=== PATIENT | male | born 2000 | race Caucasian/White ===

== ENCOUNTER → 2024-10-29 | Outpatient (CLI) | payer OTHER ==
[2024-10-29 12:57] LABS: HEMATOCRIT 42.2 % (42.0-52.0); HEMOGLOBIN 14.2 g/dl (13.5-17.5); MEAN CORPUSCULAR HEMOGLOBIN 29.2 pg (27.0-33.0); MEAN CORPUSCULAR HGB CONC 33.6 g/dl (32.0-36.5); MEAN CORPUSCULAR VOLUME 86.7 fl (80.0-96.0); PLATELET COUNT, AUTOMATED 221 10^3/uL (150-450); RED BLOOD COUNT 4.87 10^6/uL (4.30-6.10)
[2024-10-29 13:02] LABS: ALBUMIN 4.2 G/DL (3.2-5.2); ALKALINE PHOSPHATASE 41 U/L (40-129); ALT/SGPT 18 U/L (7.0-40); AST/SGOT 12 U/L (<34); BILIRUBIN,TOTAL 0.6 MG/DL (0.3-1.2); BLOOD UREA NITROGEN 24 MG/DL (9-23); CALCIUM LEVEL 9.5 MG/DL (8.5-10.1); CARBON DIOXIDE LEVEL 31 MMOL/L (20-31); CHLORIDE LEVEL 105 MMOL/L (98-107); CREATININE FOR GFR 0.78 MG/DL (0.70-1.30); GLOMERULAR FILTRATION RATE > 90.0 (>60); GLUCOSE, FASTING 88 MG/DL (60-100); POTASSIUM SERUM 4.3 MMOL/L (3.5-5.1); SODIUM LEVEL 143 MMOL/L (136-145); TOTAL PROTEIN 7.4 G/DL (5.7-8.2)
== END ==
LOC: M WUC 09:50
PROVIDERS: ATTEND Physician Assistant
DX: Z00.00 Encounter for general adult medical examination without abnormal findings (principal)

== ENCOUNTER → 2025-02-04 | Outpatient (REF) | payer OTHER ==
[2025-02-04 19:08] LABS: PLATELET COUNT, AUTOMATED 205 10^3/uL (150-450)
[2025-02-04 19:23] LABS: ERYTHROCYTE SEDIMENTATION RATE 28 mm/hr (0-15)
[2025-02-04 19:29] LABS: C REACTIVE PROTEIN QUANTITATIV 7.04 MG/DL (<1.0)
[2025-02-04 19:30] LABS: ALT/SGPT 21 U/L (7.0-40); AST/SGOT 20 U/L (<34); CALCIUM LEVEL 9.2 MG/DL (8.5-10.1); CARBON DIOXIDE LEVEL 31 MMOL/L (20-31); CHLORIDE LEVEL 100 MMOL/L (98-107); CREATININE FOR GFR 0.91 MG/DL (0.70-1.30); GLOMERULAR FILTRATION RATE > 90.0 (>60); POTASSIUM SERUM 4.0 MMOL/L (3.5-5.1); SODIUM LEVEL 142 MMOL/L (136-145)
== END ==
LOC: M LABWUC 18:33
PROVIDERS: ATTEND Physician Assistant
DX: M79.18 Myalgia, other site (principal); R53.83 Other fatigue; R53.1 Weakness

== ENCOUNTER 2025-02-11 15:01 | Emergency (ER) | payer OTHER ==
[~2025-02-11] VITALS: Ht 193 cm; Wt 95.8 kg
[2025-02-11] MEDS ORDERED: ISOVUE-370 76% 100 ML VIAL As Ordered ONE (15:36)
[2025-02-11 15:53] LABS: PLATELET COUNT, AUTOMATED 349 10^3/uL (150-450)
[2025-02-11 16:23] LABS: CALCIUM LEVEL 9.3 MG/DL (8.5-10.1); CARBON DIOXIDE LEVEL 32 MMOL/L (20-31); CHLORIDE LEVEL 103 MMOL/L (98-107); CREATININE FOR GFR 0.84 MG/DL (0.70-1.30); GLOMERULAR FILTRATION RATE > 90.0 (>60); POTASSIUM SERUM 4.7 MMOL/L (3.5-5.1); SODIUM LEVEL 142 MMOL/L (136-145)
[2025-02-11] MEDS ORDERED: PROHANCE 279.3MG/ML 5ML VIAL As Ordered ONE (20:57)
[2025-02-11] MEDS ORDERED: PROHANCE 279.3MG/ML 15ML VIAL As Ordered ONE (20:57)
[2025-02-11] MEDS ORDERED: PRED20TA PO (23:11)
[2025-02-11 23:29] VITALS: BP 101/66; TEMP 97.1; O2SAT 98
== END 2025-02-11 23:30 | disposition home or self-care (01) ==
LOC: M ED 15:01
DX: G51.0 Bell's palsy (principal); R94.02 Abnormal brain scan
CPT/HCPCS: 70450; 70496; 70498; 70546; 70551; 80048; 85027; 96374; 99284; A9576; J2919; Q9967